=== PATIENT | male | born 1985 | race Caucasian/White ===

== ENCOUNTER 2016-11-09 20:16 | Emergency (ER) | payer SELFPAY ==
--- NOTE | 2016-11-09 21:47 | ED CLINICAL REPORT ---
Clinical Report - Physicians/Mid Levels [facility] [address] [place] [address] 11/09/2016 20:19 Patient: LUANNE FITZGERALD Time Seen: 20:43; initial patient contact, initial documentation, patient care assumed. Arrived- By private vehicle. Historian- patient. HISTORY OF PRESENT ILLNESS Chief Complaint: ABDOMINAL PAIN. At its maximum, severity described as severe. When seen in the E.D., severity described as severe. Modifying factors. Not worsened by anything. Not relieved by anything. It is described as "pain" and stabbing. No radiation. It is described as located in the periumbilical area. This started about 2 days ago and is still present. It was abrupt in onset and has been intermittent. No nausea, loss of appetite or vomiting. He has had diarrhea. This has occurred only once. No additional abdominal pain. (no pcp). Similar symptoms previously: None. Recent medical care: The patient was seen recently in a clinic. ( went to walk in clinic, given rx prilosec, no better). REVIEW OF SYSTEMS No constipation, black stools, hematemesis, difficulty with urination or pain with urination. No urinary frequency, bloody stools, fever, chest pain or difficulty breathing. All systems otherwise negative, except as recorded above. PAST HISTORY See nurses notes. PROBLEMS: Asthma. --20:28 Theresa Damian RRaine. ADDITIONAL SURGERIES: Oral surgery. --20:28 Theresa Damian RRaine. SOCIAL HISTORY Former smoker. Occasional alcohol use. No drug use. No recent travel. Is a local resident. FAMILY HISTORY Negative. ADDITIONAL NOTES The nursing notes have been reviewed with agreement regarding the chief complaint, HPI, ROS, PMH and patient medications and allergies. PHYSICAL EXAM Vital Signs: 11/09/2016 20:25 BP: 148/93. HR: 74. RR: 15. O2 saturation: 100%. Temp: 98.7 F. Pain level now: 7/10. Have been reviewed as normal and appear to be correct. Appearance: Alert. Oriented X3. No acute distress. Eyes: Pupils equal, round and reactive to light. Eyes normal inspection. Neck: Normal inspection. Neck supple. CVS: Normal heart rate and rhythm. Heart sounds normal. Pulses normal. Respiratory: No respiratory distress. Breath sounds normal. Chest nontender. Abdomen: Soft. Mild tenderness in the periumbilical area. No guarding, rebound tenderness or Beard's, obturator or psoas sign present. Bowel sounds normal. No organomegaly. No mass. Tenderness present. Back: Normal inspection. Skin: Skin warm and dry. Normal skin color. No rash. Normal skin turgor. Extremities: Extremities exhibit normal ROM. No lower extremity edema. Neuro: Oriented X 3. No motor deficit. No sensory deficit. LABS, X-RAYS, AND EKG Laboratory Tests: UA-Culture if indicated: (FIONA: 11/09/2016 20:31) ( [facility] 11/09/2016 21:29) Final results Test Result Flag Units (Reference) URINE COLOR YELLOW URINE APPEARANCE CLEAR URINE GLUCOSE NEGATIVE (NEGATIVE) URINE BILIRUBIN NEGATIVE (NEGATIVE) URINE KETONE NEGATIVE (NEGATIVE) URINE SPECIFIC GRAVITY 1.010 (1.010-1.030) URINE PH 7.0 (5.0-8.0) URINE PROTEIN NEGATIVE (NEGATIVE) URINE UROBILINOGEN 0.2 EU/dL (0.2-1.0) URINE NITRITE NEGATIVE (NEGATIVE) URINE BLOOD NEGATIVE (NEGATIVE) URINE LEUK ESTERASE NEGATIVE (NEGATIVE) URINE RBC NONE SEEN rbc/hpf (0-1) URINE WBC NONE SEEN wbc/hpf (0-1) URINE EPITHELIAL CELLS RARE EPI/hpf (0-5) URINE BACTERIA NONE SEEN (NONE SEEN) URINE COMMENT CULT NOT INDICATED URINE CULTURES ARE SET-UP BASED ON THE FOLLOWING CRITERIA:POSITIVE NITRITEPOSITIVE LEUKOCYTE ESTERASEGREATER THAN 10 WHITE BLOOD CELLSMODERATE (2+) OR GREATER BACTERIA CBC w Diff: (FIONA: 11/09/2016 20:31) ( [facility] 11/09/2016 21:14) Final results Test Result Flag Units (Reference) WHITE BLOOD COUNT 11.5 K/uL (4.5-11.5) RED BLOOD COUNT 5.07 M/uL (4.50-5.90) HEMOGLOBIN 15.1 gm/dL (13.5-17.5) HEMATOCRIT 44.7 % (41.0-53.0) MEAN CELL VOLUME 88 fL (80-100) MEAN CORPUSCULAR HGB 30 pg (26-34) MEAN CORPUSCULAR HGB CONC 34 g/dL (31-37) RED CELL DISTRIBUTION WIDTH 13.0 % (11.6-14.8) PLATELET COUNT 302 K/uL (150-400) NEUTROPHIL % 48.6 L % (50-75) LYMPH % 28.6 % (25-40) MONO % 4.1 % (3-14) EOSINOPHIL % 18.4 H % (0-4) BASOPHIL % 0.3 % (0-2) CMP: (FIONA: 11/09/2016 20:31) ( MsgRcvd 11/09/2016 21:30) Final results Test Result Flag Units (Reference) GLUCOSE 113 H mg/dL (70-110) BUN 13 mg/dL (7-18) CREATININE 1.2 mg/dL (0.6-1.3) Estimated GFR >60 mL/min Estimated GFR- >60 mL/min Note: Persistent reduction over 3 months in eGFR<60 mL/min/1.73 m2 defines CKD. Patients with eGFR values>=60 mL/min/1.73 m2 may also have CKD if evidence ofpersistent proteinuria. Additional information may be foundat www.kidney.org. SODIUM 140 mmol/L (136-145) POTASSIUM 3.4 L mmol/L (3.5-5.1) CHLORIDE 101 mmol/L (98-107) CARBON DIOXIDE 28 mmol/L (21-32) CALCIUM 8.9 mg/dL (8.5-10.1) TOTAL PROTEIN 8.0 g/dL (6.4-8.2) ALBUMIN 4.1 g/dL (3.3-5.0) BILIRUBIN, TOTAL 0.8 mg/dL (0.0-1.0) ALKALINE PHOSPHATASE 104 U/L (46-116) AST (SGOT) 17 U/L (15-37) ALT (SGPT) 23 U/L (12-78) LIPASE 179 U/L (73-393) AMYLASE 71 U/L (25-115) . PROGRESS AND PROCEDURES Course of Care: 2139. pt telling me he feels better after gi cocktail. Patient and family counseled in person regarding the patient's stable condition, test results and diagnosis. Differential Diagnosis: I considered gastritis, gastroenteritis, peptic ulcer disease, gastroesophageal reflux disease, acute appendicitis, diverticulitis, colon cancer, ulcerative colitis, Crohn's disease, biliary colic, cholecystitis, cholelithiasis, hepatitis, pancreatitis, common bile duct obstruction and viral syndrome as a possible cause of abdominal pain in this patient. This is a partial list of diagnoses considered. Above considerations are based on history, physical exam, reassessment and laboratory data. Differential diagnosis was discussed with patient. Disposition: Discharged home in good and improved condition (21:47). Condition: good and stable. CLINICAL IMPRESSION Acute periumbilical abdominal pain of undetermined cause. INSTRUCTIONS Warnings: GENERAL WARNINGS: Return or contact your physician immediately if your condition worsens or changes unexpectedly, if not improving as expected, or if other problems arise. SPECIFICALLY, return if you develop pain in the abdomen or pelvis, fever, the inability to keep fluids down, blood in vomitus, blood in diarrhea, fainting or lightheadedness. Prescription Medications: Carafate 1 gm tablets: take 1 orally four times daily (1 hour before meals and at bedtime). Dispense sixty (60). No refills. Substitution is permissible. Ultram 50 mg tablets: take 1-2 orally every 6 hours as needed for pain. Dispense twenty (20). No refills. Substitution is permissible. Follow-up: Follow up with your doctor in about two days even if well. Call for an appointment. Summary of care provided to patient. Understanding of the discharge instructions verbalized by patient. Follow-up with: Taz Kaufman MD, [facility], , [address] [facility], , [place] [address]; Ed Burdick MD, [facility], , [facility], [address] [place] [address]; Dominic Pedroza MD, [facility], , [facility], [address] [place] [address]; Mathew Henderson MD, [facility], , [facility], [address] [place] [address] [address] [place] [address]; Christiana Bishop MD, [facility], [address] [place] [address], [facility], [address] [place] [address] [place] [address]; [facility], [facility], , [address] [place] [address]; Rebecca Valdez PA-C, [facility], [address] [place] [address], [facility], [address] [place] [address], [address] [address]; [facility], [facility], [address] [place] [address], [address] [place] [address], [address], [place] [address] Follow up in about two days as needed. Call for an appointment. Summary of care provided to patient. (Electronically signed by Crys Freitas A.R.N.P. 11/09/2016 22:50)
--- NOTE | 2016-11-09 21:47 | ED NURSING NOTES ---
Clinical Report - Nurses [facility] [address] [place] [address] 11/09/2016 20:19 Patient: LUANNE FITZGERALD TRIAGE Triage time 20:Nov 09 2016. Acuity: LEVEL 3. Chief Complaint: ABDOMINAL PAIN and (pt with 2 days of abd pain " center in my stomach" describes as "throbbing" accomp with denies n/v, normal urine voiding, reports diarrhea since monday). Alert. No acute distress. SEPSIS SCREEN: Sepsis Screen. Negative (no infection suspected/documented). --20:29 Theresa Damian R.N. 20:25 11/09/16. BP: 148/93. HR: 74. RR: 15. O2 saturation: 100%. Temp: 98.7 F. Pain level now: 11/28. --20:29 Theresa Damian R.N. Weight: 65.7 kg stated. Height/Length: 70 inches Per Patient. BMI: 20.8. --20:26 Theresa Damian R.N. Medications PriLOSEC Oral. --20:28 Theresa Damian R.N. Allergies None. --20:28 Theresa Damian R.N. Medication/allergy information source: the patient. --20:29 Theresa Damian R.N. History Arrived by private vehicle. Historian: patient. Accompanied by family. This started yesterday. 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 PAST MEDICAL HX: Immunizations: up-to-date. SOCIAL HX: Former smoker, end date 2014. History of drug use: marijuana. No alcohol use. No recent travel. No infectious disease exposure. No known contact with a sick individual. ABUSE ASSESSMENT: No report of abuse. SELF HARM ASSESSMENT: A self harm assessment was performed. The patient answered "no" to the question "Do you have thoughts of harming or killing yourself?". FALL RISK ASSESSMENT: Fall risk assessment completed. No fall risk identified. NUTRITIONAL RISK ASSESSMENT: The nutritional risk assessment revealed no deficiencies. FUNCTIONAL ASSESSMENT: Functional assessment: no impairments noted. LEARNING NEEDS ASSESSMENT: The learning needs assessment revealed no barriers. SKIN INTEGRITY ASSESSMENT: Skin integrity risk assessment completed. No skin integrity risk identified. --20:29 Theresa Damian R.N. PROBLEMS: Asthma. --20:28 Theresa Damian R.N. ADDITIONAL SURGERIES: Oral surgery. --20:28 Theresa Damian R.N. Interventions ID band on patient. To treatment room. --20:29 Theresa Damian R.N. PHYSICAL ASSESSMENT Ambulatory to room. Patient gowned. GENERAL / NEURO / PSYCH: Alert. Oriented X 4. Appears in no acute distress. HEENT: Mucous membranes are pink. RESPIRATORY: Respirations not labored. CVS: Capillary refill less than 2 seconds. GI / : Abdomen soft and nontender. Bowel sounds within normal limits. SKIN: Skin is warm and dry. --20:31 Theresa Damian R.N. NURSING PROGRESS NOTES 20:31 11/09/2016 Site #1 started via IV in the left antecubital space with an 20g angiocath; one attempt. Blood drawn: rainbow set. Labeled in the presence of the patient and sent to the lab. Saline lock flushed with 10 mL saline. --20:31 Theresa Damian R.N. Monitoring of patient in place. Patient gowned. Head of bed elevated. Reassurance given. Patient identifiers checked. Call light placed in reach. Side rails up. Bed placed in lowest position. Brakes of bed on. Patient ready for evaluation- chart flagged. Patient waiting for evaluation. --20:31 Theresa Damian R.N. 21:22 11/09/2016 Toradol IVP 30 mg given. via site #1. Allergies verified and confirmed 5 rights. IV patency established. IV site checked: no pain, redness, or swelling. IV flushed thoroughly pre- and post-medication administration. IVP given by RN. --21:27 Theresa Damian R.N. 21:37 11/09/2016 GI COCKTAIL WHITE (Simethicone) PO 30 mL given. Allergies verified and confirmed 5 rights. --21:42 Theresa Damian R.N. DISPOSITION / DISCHARGE 22:00 11/09/2016 Site #1 removed upon discharge. Catheter intact. Manual pressure and bandage applied. --22:02 Xiomara Hartman R.N. Condition at departure: stable. No learning barriers present. Discharge instructions provided and reviewed with the patient. Reviewed medication(s) side effects, precautions, dosing and course information. Prescription(s) given to the patient. Patient verbalized understanding. Written instructions provided in [place] [employer]. The patient was discharged home and accompanied by family. He left the Emergency Department ambulatory and via private vehicle. Family member driving. --22:03 Xiomara Hartman R.N. 22:02 11/09/16. BP: 118/73. HR: 57. RR: 15. O2 saturation: 99% on room air. Temp: deferred. Mancini-Li pain scale: 4/10. --22:03 Xiomara Hartman R.N. Locked/Released at 11/09/2016 22:03 by Xiomara Hartman R.N.
--- NOTE | 2016-11-09 21:47 | ED ORDER SUMMARY ---
..... Patient: LUANNE FITZGERALD OrderSheet [facility] VisitID: [id number] [address] [place] [address] 30y, M Registration Date/Time: 11/09/2016 ORDER SHEET Weight: 65.7 kg (stated) Allergies: None GENERAL ORDERS: CBC w Diff Urgent (20:51 11/09/2016 HBivens A.R.N.P.) (Ack 20:56 AMcQuoid ER Tech1) (21:24 KPage-Kuchan R.N.) CMP Urgent (20:51 11/09/2016 HBivens A.R.N.P.) (Ack 20:56 AMcQuoid ER Tech1) (21:24 KPage-Kuchan R.N.) UA-Culture if indicated Urgent (20:51 11/09/2016 HBivens A.R.N.P.) (Ack 20:56 AMcQuoid ER Tech1) (21:24 KPage-Kuchan R.N.) Amylase Urgent (20:51 11/09/2016 HBivens A.R.N.P.) (Ack 20:56 AMcQuoid ER Tech1) (21:24 KPage-Kuchan R.N.) Lipase Urgent (20:51 11/09/2016 HBivens A.R.N.P.) (Ack 20:56 AMcQuoid ER Tech1) (21:24 KPage-Kuchan R.N.) MEDICATION ORDERS: GI Cocktail WHITE PO 30 mL with Lidocaine Viscous Mouth/Throat 15 mL, Maalox Plus Oral 15 mL (21:32 11/09/2016 HBivens A.R.N.P.) (Ack 21:32 KPage-Kuchan R.N.) (21:42 KPage-Kuchan R.N.) IV FLUIDS: Toradol IV 30 mg (NOW) (20:51 11/09/2016 HBivens A.R.N.P.) (Ack 21:00 KPage-Kuchan R.N.) (21:27 KPage-Kuchan R.N.) IV Saline Lock (20:51 11/09/2016 HBivens A.R.N.PAyesha) (20:55 Toni Lemus) ORDER SHEET NOTES: [Electronically signed by Xiomara Hartman R.N. (22:03 11/09/2016)] [Electronically signed by Crys FreitasRAyeshaN.PAyesha (22:50 11/09/2016)] [Electronically locked/signed by Xiomara Hartman R.N. (22:03 11/09/2016)]
--- NOTE | 2016-11-09 21:47 | ED NURSING NOTES ---
Clinical Report - Nurses [facility] [address] [place] [address] 11/09/2016 20:19 Patient: LUANNE FITZGERALD TRIAGE Triage time 20:Nov 09 2016. Acuity: LEVEL 3. Chief Complaint: ABDOMINAL PAIN and (pt with 2 days of abd pain " center in my stomach" describes as "throbbing" accomp with denies n/v, normal urine voiding, reports diarrhea since monday). Alert. No acute distress. SEPSIS SCREEN: Sepsis Screen. Negative (no infection suspected/documented). --20:29 Theresa Damian R.N. 20:25 11/09/16. BP: 148/93. HR: 74. RR: 15. O2 saturation: 100%. Temp: 98.7 F. Pain level now: 11/28. --20:29 Theresa Damian R.N. Weight: 65.7 kg stated. Height/Length: 70 inches Per Patient. BMI: 20.8. --20:26 Theresa Damian R.N. Medications PriLOSEC Oral. --20:28 Theresa Damian R.N. Allergies None. --20:28 Theresa Damian R.N. Medication/allergy information source: the patient. --20:29 Theresa Damian R.N. History Arrived by private vehicle. Historian: patient. Accompanied by family. This started yesterday. 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 PAST MEDICAL HX: Immunizations: up-to-date. SOCIAL HX: Former smoker, end date 2014. History of drug use: marijuana. No alcohol use. No recent travel. No infectious disease exposure. No known contact with a sick individual. ABUSE ASSESSMENT: No report of abuse. SELF HARM ASSESSMENT: A self harm assessment was performed. The patient answered "no" to the question "Do you have thoughts of harming or killing yourself?". FALL RISK ASSESSMENT: Fall risk assessment completed. No fall risk identified. NUTRITIONAL RISK ASSESSMENT: The nutritional risk assessment revealed no deficiencies. FUNCTIONAL ASSESSMENT: Functional assessment: no impairments noted. LEARNING NEEDS ASSESSMENT: The learning needs assessment revealed no barriers. SKIN INTEGRITY ASSESSMENT: Skin integrity risk assessment completed. No skin integrity risk identified. --20:29 Theresa Damian R.N. PROBLEMS: Asthma. --20:28 Theresa Damian R.N. ADDITIONAL SURGERIES: Oral surgery. --20:28 Theresa Damian R.N. Interventions ID band on patient. To treatment room. --20:29 Theresa Damian R.N. PHYSICAL ASSESSMENT Ambulatory to room. Patient gowned. GENERAL / NEURO / PSYCH: Alert. Oriented X 4. Appears in no acute distress. HEENT: Mucous membranes are pink. RESPIRATORY: Respirations not labored. CVS: Capillary refill less than 2 seconds. GI / : Abdomen soft and nontender. Bowel sounds within normal limits. SKIN: Skin is warm and dry. --20:31 Theresa Damian R.N. NURSING PROGRESS NOTES 20:31 11/09/2016 Site #1 started via IV in the left antecubital space with an 20g angiocath; one attempt. Blood drawn: rainbow set. Labeled in the presence of the patient and sent to the lab. Saline lock flushed with 10 mL saline. --20:31 Theresa Damian R.N. Monitoring of patient in place. Patient gowned. Head of bed elevated. Reassurance given. Patient identifiers checked. Call light placed in reach. Side rails up. Bed placed in lowest position. Brakes of bed on. Patient ready for evaluation- chart flagged. Patient waiting for evaluation. --20:31 Theresa Damian R.N. 21:22 11/09/2016 Toradol IVP 30 mg given. via site #1. Allergies verified and confirmed 5 rights. IV patency established. IV site checked: no pain, redness, or swelling. IV flushed thoroughly pre- and post-medication administration. IVP given by RN. --21:27 Theresa Damian R.N. 21:37 11/09/2016 GI COCKTAIL WHITE (Simethicone) PO 30 mL given. Allergies verified and confirmed 5 rights. --21:42 Theresa Damian R.N. DISPOSITION / DISCHARGE 22:00 11/09/2016 Site #1 removed upon discharge. Catheter intact. Manual pressure and bandage applied. --22:02 Xiomara Hartman R.N. Condition at departure: stable. No learning barriers present. Discharge instructions provided and reviewed with the patient. Reviewed medication(s) side effects, precautions, dosing and course information. Prescription(s) given to the patient. Patient verbalized understanding. Written instructions provided in Thai. The patient was discharged home and accompanied by family. He left the Emergency Department ambulatory and via private vehicle. Family member driving. --22:03 Xiomara Hartman R.N. 22:02 11/09/16. BP: 118/73. HR: 57. RR: 15. O2 saturation: 99% on room air. Temp: deferred. Mancini-Li pain scale: 4/10. --22:03 Xiomara Hartman R.N. Locked/Released at 11/09/2016 22:03 by Xiomara Hartman R.N.
--- NOTE | 2016-11-09 21:47 | ED CLINICAL REPORT ---
Clinical Report - Physicians/Mid Levels [facility] [address] [place] [address] 11/09/2016 20:19 Patient: LUANNE FITZGERALD Time Seen: 20:43; initial patient contact, initial documentation, patient care assumed. Arrived- By private vehicle. Historian- patient. HISTORY OF PRESENT ILLNESS Chief Complaint: ABDOMINAL PAIN. At its maximum, severity described as severe. When seen in the E.D., severity described as severe. Modifying factors. Not worsened by anything. Not relieved by anything. It is described as "pain" and stabbing. No radiation. It is described as located in the periumbilical area. This started about 2 days ago and is still present. It was abrupt in onset and has been intermittent. No nausea, loss of appetite or vomiting. He has had diarrhea. This has occurred only once. No additional abdominal pain. (no pcp). Similar symptoms previously: None. Recent medical care: The patient was seen recently in a clinic. ( went to walk in clinic, given rx prilosec, no better). REVIEW OF SYSTEMS No constipation, black stools, hematemesis, difficulty with urination or pain with urination. No urinary frequency, bloody stools, fever, chest pain or difficulty breathing. All systems otherwise negative, except as recorded above. PAST HISTORY See nurses notes. PROBLEMS: Asthma. --20:28 Theresa Damian RRaine. ADDITIONAL SURGERIES: Oral surgery. --20:28 Theresa Damian RRaine. SOCIAL HISTORY Former smoker. Occasional alcohol use. No drug use. No recent travel. Is a local resident. FAMILY HISTORY Negative. ADDITIONAL NOTES The nursing notes have been reviewed with agreement regarding the chief complaint, HPI, ROS, PMH and patient medications and allergies. PHYSICAL EXAM Vital Signs: 11/09/2016 20:25 BP: 148/93. HR: 74. RR: 15. O2 saturation: 100%. Temp: 98.7 F. Pain level now: 7/10. Have been reviewed as normal and appear to be correct. Appearance: Alert. Oriented X3. No acute distress. Eyes: Pupils equal, round and reactive to light. Eyes normal inspection. Neck: Normal inspection. Neck supple. CVS: Normal heart rate and rhythm. Heart sounds normal. Pulses normal. Respiratory: No respiratory distress. Breath sounds normal. Chest nontender. Abdomen: Soft. Mild tenderness in the periumbilical area. No guarding, rebound tenderness or Beard's, obturator or psoas sign present. Bowel sounds normal. No organomegaly. No mass. Tenderness present. Back: Normal inspection. Skin: Skin warm and dry. Normal skin color. No rash. Normal skin turgor. Extremities: Extremities exhibit normal ROM. No lower extremity edema. Neuro: Oriented X 3. No motor deficit. No sensory deficit. LABS, X-RAYS, AND EKG Laboratory Tests: UA-Culture if indicated: (FIONA: 11/09/2016 20:31) ( [facility] 11/09/2016 21:29) Final results Test Result Flag Units (Reference) URINE COLOR YELLOW URINE APPEARANCE CLEAR URINE GLUCOSE NEGATIVE (NEGATIVE) URINE BILIRUBIN NEGATIVE (NEGATIVE) URINE KETONE NEGATIVE (NEGATIVE) URINE SPECIFIC GRAVITY 1.010 (1.010-1.030) URINE PH 7.0 (5.0-8.0) URINE PROTEIN NEGATIVE (NEGATIVE) URINE UROBILINOGEN 0.2 EU/dL (0.2-1.0) URINE NITRITE NEGATIVE (NEGATIVE) URINE BLOOD NEGATIVE (NEGATIVE) URINE LEUK ESTERASE NEGATIVE (NEGATIVE) URINE RBC NONE SEEN rbc/hpf (0-1) URINE WBC NONE SEEN wbc/hpf (0-1) URINE EPITHELIAL CELLS RARE EPI/hpf (0-5) URINE BACTERIA NONE SEEN (NONE SEEN) URINE COMMENT CULT NOT INDICATED URINE CULTURES ARE SET-UP BASED ON THE FOLLOWING CRITERIA:POSITIVE NITRITEPOSITIVE LEUKOCYTE ESTERASEGREATER THAN 10 WHITE BLOOD CELLSMODERATE (2+) OR GREATER BACTERIA CBC w Diff: (FIONA: 11/09/2016 20:31) ( [facility] 11/09/2016 21:14) Final results Test Result Flag Units (Reference) WHITE BLOOD COUNT 11.5 K/uL (4.5-11.5) RED BLOOD COUNT 5.07 M/uL (4.50-5.90) HEMOGLOBIN 15.1 gm/dL (13.5-17.5) HEMATOCRIT 44.7 % (41.0-53.0) MEAN CELL VOLUME 88 fL (80-100) MEAN CORPUSCULAR HGB 30 pg (26-34) MEAN CORPUSCULAR HGB CONC 34 g/dL (31-37) RED CELL DISTRIBUTION WIDTH 13.0 % (11.6-14.8) PLATELET COUNT 302 K/uL (150-400) NEUTROPHIL % 48.6 L % (50-75) LYMPH % 28.6 % (25-40) MONO % 4.1 % (3-14) EOSINOPHIL % 18.4 H % (0-4) BASOPHIL % 0.3 % (0-2) CMP: (FIONA: 11/09/2016 20:31) ( MsgRcvd 11/09/2016 21:30) Final results Test Result Flag Units (Reference) GLUCOSE 113 H mg/dL (70-110) BUN 13 mg/dL (7-18) CREATININE 1.2 mg/dL (0.6-1.3) Estimated GFR >60 mL/min Estimated GFR- >60 mL/min Note: Persistent reduction over 3 months in eGFR<60 mL/min/1.73 m2 defines CKD. Patients with eGFR values>=60 mL/min/1.73 m2 may also have CKD if evidence ofpersistent proteinuria. Additional information may be foundat [email or web address]. SODIUM 140 mmol/L (136-145) POTASSIUM 3.4 L mmol/L (3.5-5.1) CHLORIDE 101 mmol/L (98-107) CARBON DIOXIDE 28 mmol/L (21-32) CALCIUM 8.9 mg/dL (8.5-10.1) TOTAL PROTEIN 8.0 g/dL (6.4-8.2) ALBUMIN 4.1 g/dL (3.3-5.0) BILIRUBIN, TOTAL 0.8 mg/dL (0.0-1.0) ALKALINE PHOSPHATASE 104 U/L (46-116) AST (SGOT) 17 U/L (15-37) ALT (SGPT) 23 U/L (12-78) LIPASE 179 U/L (73-393) AMYLASE 71 U/L (25-115) . PROGRESS AND PROCEDURES Course of Care: 2139. pt telling me he feels better after gi cocktail. Patient and family counseled in person regarding the patient's stable condition, test results and diagnosis. Differential Diagnosis: I considered gastritis, gastroenteritis, peptic ulcer disease, gastroesophageal reflux disease, acute appendicitis, diverticulitis, colon cancer, ulcerative colitis, Crohn's disease, biliary colic, cholecystitis, cholelithiasis, hepatitis, pancreatitis, common bile duct obstruction and viral syndrome as a possible cause of abdominal pain in this patient. This is a partial list of diagnoses considered. Above considerations are based on history, physical exam, reassessment and laboratory data. Differential diagnosis was discussed with patient. Disposition: Discharged home in good and improved condition (21:47). Condition: good and stable. CLINICAL IMPRESSION Acute periumbilical abdominal pain of undetermined cause. INSTRUCTIONS Warnings: GENERAL WARNINGS: Return or contact your physician immediately if your condition worsens or changes unexpectedly, if not improving as expected, or if other problems arise. SPECIFICALLY, return if you develop pain in the abdomen or pelvis, fever, the inability to keep fluids down, blood in vomitus, blood in diarrhea, fainting or lightheadedness. Prescription Medications: Carafate 1 gm tablets: take 1 orally four times daily (1 hour before meals and at bedtime). Dispense sixty (60). No refills. Substitution is permissible. Ultram 50 mg tablets: take 1-2 orally every 6 hours as needed for pain. Dispense twenty (20). No refills. Substitution is permissible. Follow-up: Follow up with your doctor in about two days even if well. Call for an appointment. Summary of care provided to patient. Understanding of the discharge instructions verbalized by patient. Follow-up with: Taz Kaufman MD, [facility], , [address] [facility], , [place] [address]; Ed Burdick MD, [facility], , [facility], [address] [place] [address]; Dominic Pedroza MD, [facility], , [facility], [address] [place] [address]; Mathew Henderson MD, [facility], , [facility], [address] [place] [address] [place] [address]; Christiana Bishop MD, [facility], [address] [place] [address], [facility], [address] [place] [address] [place] [address]; [facility], [facility], , [address] [place] [address]; Rebecca Valdez PA-C, [facility], [address] [place] [address], [facility], [address] [place] [address], [address] [address]; [facility], [facility], [address] [place] [address], [address] [place] [address], [address], [place] [address] Follow up in about two days as needed. Call for an appointment. Summary of care provided to patient. (Electronically signed by Crys Freitas A.R.N.P. 11/09/2016 22:50)
--- NOTE | 2016-11-09 21:47 | ED ORDER SUMMARY ---
..... Patient: LUANNE FITZGERALD OrderSheet [facility] VisitID: [id number] [address] [place] [address] 30y, M Registration Date/Time: 11/09/2016 ORDER SHEET Weight: 65.7 kg (stated) Allergies: None GENERAL ORDERS: CBC w Diff Urgent (20:51 11/09/2016 HBivens A.R.N.P.) (Ack 20:56 AMcQuoid ER Tech1) (21:24 KPage-Kuchan R.N.) CMP Urgent (20:51 11/09/2016 HBivens A.R.N.P.) (Ack 20:56 AMcQuoid ER Tech1) (21:24 KPage-Kuchan R.N.) UA-Culture if indicated Urgent (20:51 11/09/2016 HBivens A.R.N.P.) (Ack 20:56 AMcQuoid ER Tech1) (21:24 KPage-Kuchan R.N.) Amylase Urgent (20:51 11/09/2016 HBivens A.R.N.P.) (Ack 20:56 AMcQuoid ER Tech1) (21:24 KPage-Kuchan R.N.) Lipase Urgent (20:51 11/09/2016 HBivens A.R.N.P.) (Ack 20:56 AMcQuoid ER Tech1) (21:24 KPage-Kuchan R.N.) MEDICATION ORDERS: GI Cocktail WHITE PO 30 mL with Lidocaine Viscous Mouth/Throat 15 mL, Maalox Plus Oral 15 mL (21:32 11/09/2016 HBivens A.R.N.P.) (Ack 21:32 KPage-Kuchan R.N.) (21:42 KPage-Kuchan R.N.) IV FLUIDS: Toradol IV 30 mg (NOW) (20:51 11/09/2016 HBivens A.R.N.P.) (Ack 21:00 KPage-Kuchan R.N.) (21:27 KPage-Kuchan R.N.) IV Saline Lock (20:51 11/09/2016 HBivens A.R.N.PAyesha) (20:55 Toni Lemus) ORDER SHEET NOTES: [Electronically signed by Xiomara Hartman R.N. (22:03 11/09/2016)] [Electronically signed by Crys FreitasRAyeshaN.PAyesha (22:50 11/09/2016)] [Electronically locked/signed by Xiomara Hartman R.N. (22:03 11/09/2016)]
--- NOTE | 2016-11-09 22:51 | ED MAR SUMMARY ---
..... Medication Administration Record [facility] [address] [place] [address] Patient: LUANNE FITZGERALD Visit ID: [id number] 30y, M Weight: 65.7 kg Height/Length: 70 in BMI: 20.8 ALLERGIES: None Given 21:22 11/09/2016 Theresa Damian, RAyeshaNAyesha Medication Administered: TORADOL [IVP], Dose: 30 mg IVP, Site: #1 left . Medication Ordered: Toradol IV 30 mg (NOW). Given 21:37 11/09/2016 Theresa Damian, R.N. Medication Administered: GI COCKTAIL WHITE [PO] (SIMETHICONE), Dose: 30 mL PO. Medication Ordered: GI Cocktail WHITE PO 30 mL with Lidocaine Viscous Mouth/Throat 15 mL, Maalox Plus Oral 15 mL.
--- NOTE | 2016-11-09 22:51 | ED MAR SUMMARY ---
..... Medication Administration Record [facility] [address] [place] [address] Patient: LUANNE FITZGERALD Visit ID: [id number] 30y, M Weight: 65.7 kg Height/Length: 70 in BMI: 20.8 ALLERGIES: None Given 21:22 11/09/2016 Theresa Damian, RAyeshaNAyesha Medication Administered: TORADOL [IVP], Dose: 30 mg IVP, Site: #1 left . Medication Ordered: Toradol IV 30 mg (NOW). Given 21:37 11/09/2016 Theresa Damian, R.N. Medication Administered: GI COCKTAIL WHITE [PO] (SIMETHICONE), Dose: 30 mL PO. Medication Ordered: GI Cocktail WHITE PO 30 mL with Lidocaine Viscous Mouth/Throat 15 mL, Maalox Plus Oral 15 mL.
--- NOTE | 2016-11-09 22:51 | ED DISCHARGE INSTRUCTIONS ---
Patient: LUANNE FITZGERALD General Instructions [facility] VisitID: [id number] [place] [address] 30y, M Registration Date/Time: 11/09/2016 Acute periumbilical abdominal pain of undetermined cause. INSTRUCTIONS Warnings: GENERAL WARNINGS: Return or contact your physician immediately if your condition worsens or changes unexpectedly, if not improving as expected, or if other problems arise. SPECIFICALLY, return if you develop pain in the abdomen or pelvis, fever, the inability to keep fluids down, blood in vomitus, blood in diarrhea, fainting or lightheadedness. Prescription Medications: Carafate 1 gm tablets: take 1 orally four times daily (1 hour before meals and at bedtime). Dispense sixty (60). No refills. Substitution is permissible. Ultram 50 mg tablets: take 1-2 orally every 6 hours as needed for pain. Dispense twenty (20). No refills. Substitution is permissible. Follow-up: Follow up with your doctor in about two days even if well. Call for an appointment. Summary of care provided to patient. Understanding of the discharge instructions verbalized by patient. Follow-up with: Taz Kaufman MD, [facility], , [address] [place] [address]; Ed Burdick MD, [facility], , [facility], [address] [place] [address]; Dominic Pedroza MD, [facility], , [facility], [address] [place] [address]; Mathew Henderson MD, [facility], , [facility], [address] [place] [address]; Christiana Bishop MD, [facility], , [facility], [address] [place] [address]; [facility], [facility], , [address] [place] [address]; Rebecca Valdez PA-C, [facility], , [facility], [address] [place] [address], [address], [place] [address]; [facility], , [address] [place] [address], [address], [place] [address] Follow up in about two days as needed. Call for an appointment. Summary of care provided to patient. ADDITIONAL INFORMATION Abdominal Pain,Uncertain Cause [Male] Based on your visit today, the exact cause of your abdominalpain is not clear. Your exam and tests do not indicate a dangerous cause at this time. However, the signs of a serious problem may take more time to appear. Although your evaluation was reassuring today, sometimes early in the course of many conditions, exam and lab tests can appear normal. Therefore, it is important for you to watch for any new symptoms or worsening of your condition. Causes It may not be obvious what caused your symptoms. Pay attention to things that do seem to make your symptoms worse or better and discuss this with your doctor when you follow up. Diagnosis The evaluation of abdominal pain in the emergency department may onlyrequire an exam by the doctor or it may include blood, urine or imaging studies, depending on many factors. Sometimes exams and tests can identify a cause but in many cases, a clear cause is not found. Further testing at follow up visits may help to suggest a clear diagnosis. Home Care Rest as much as possible until your next exam. Try to avoid any medications (unless otherwise directed by your doctor), foods, activities, or other factors that you may have contributed to your symptoms. Try to eat foods that you know that you have tolerated well in the past. Certain diets may be recommended for some conditions that cause abdominal pain. However, since the cause of your symptoms may not be clear, discuss your diet more with your primary care provider or specialist for further recommendations. Eating several small meals per day as opposed to 2 or 3 larger meals may help. Monitor closely for anything that may make your symptoms worse or better. Pay close attention to symptoms below that may indicate worsening of your condition. Follow Up and Precautions See your doctoras instructed or sooneror if your symptoms are not improving.In some cases, you may need more testing. When to Seek Medical Attention Contact your doctor or see medical attention ifany of the following occur: Pain is becoming worse You are unable to take your medications due to excessive vomiting Swelling of the abdomen Fever of 100.4F (38C) or higher, or as directed by your health care provider Blood in vomit or bowel movements (dark red or black color) Jaundice (yellow color of eyes and skin) New onset of weakness, dizziness or fainting New onset of chest, arm, back, neck or jaw pain Abdominal Pain, Possible Appendicitis, Repeat Exam, Male Based on your visit today, the exact cause of your abdominal (stomach) pain is not certain. However, you do have some of the early signs of appendicitis. Early in an appendix infection the symptoms can be similar to a simple "stomach ache" or "stomach flu". Therefore, the diagnosis can be hard to make.Since an appendix infection is a serious condition, it is important to know if this is the cause of your symptoms. WAITING for more time to pass and repeating the exam is the best way to find out whether you have appendicitis. Within the next 12-24 hours the cause of your stomach pain should become clear. It is important for you to watch for any new symptoms or worsening of your condition.(See below). Home Care: Rest until your next exam. No strenuous activities. Eat a diet low in fiber (called a low-residue diet). Foods allowed include refined breads, white rice, fruit and vegetable juices without pulp, tender meats. These foods will pass more easily through the intestine. Avoid whole-grain foods, whole fruits and vegetables, meats, seeds and nuts, fried or fatty foods, dairy, alcohol and spicy foods until your symptoms go away. In some cases, you may be asked not to eat or drink anything until you are re-examined. Return for another exam exactly as directed. Follow Up with your doctor or this facility as directed. [NOTE: If you had an X-ray, CT scan, ultrasound, or EKG (cardiogram), it will be reviewed by a specialist. You will be notified of any new findings that may affect your care.] Return Promptly before your next appointment or contact your doctor if any of the following occur: Pain gets worse or moves to the right lower abdomen New or worsening vomiting or diarrhea Swelling of the abdomen Unable to pass stool for more than three days New fever over 100.4 F (38.0 C), or rising fever Blood in vomit or bowel movements (dark red or black color) Weakness, dizziness or fainting Sucralfate Oral tablet What is this medicine? SUCRALFATE (JEANNIE carey fate) helps to treat ulcers of the intestine. How should I use this medicine? Take this medicine by mouth with a glass of water. Follow the directions on the prescription label. This medicine works best if you take it on an empty stomach, 1 hour before meals. Take your doses at regular intervals. Do not take your medicine more often than directed. Do not stop taking except on your doctor's advice. Talk to your lead infrastructure architect regarding the use of this medicine in children. Special care may be needed. What side effects may I notice from receiving this medicine? Side effects that you should report to your doctor or health resident care provider as soon as possible: allergic reactions like skin rash, itching or hives, swelling of the face, lips, or tongue difficulty breathing Side effects that usually do not require medical attention (report to your doctor or health resident care provider if they continue or are bothersome): back pain constipation drowsy, dizzy dry mouth headache stomach upset, gas trouble sleeping What may interact with this medicine? antacid cimetidine digoxin ketoconazole phenytoin quinidine ranitidine some antibiotics like ciprofloxacin, norfloxacin, and ofloxacin theophylline thyroid hormones warfarin What if I miss a dose? If you miss a dose, take it as soon as you can. If it is almost time for your next dose, take only that dose. Do not take double or extra doses. Where should I keep my medicine? Keep out of the reach of children. Store at room temperature between 15 and 30 degrees C (59 and 86 degrees F). Keep container tightly closed. Throw away any unused medicine after the expiration date. What should I tell my health care provider before I take this medicine? They need to know if you have any of these conditions: kidney disease an unusual or allergic reaction to sucralfate, other medicines, foods, dyes, or preservatives or trying to get breast-feeding What should I watch for while using this medicine? Visit your doctor or health resident care provider for regular check ups. Let your doctor know if your symptoms do not improve or if you feel worse. Antacids should not be taken within one half hour before or after this medicine. Tramadol Hydrochloride Oral tablet What is this medicine? TRAMADOL (TRA ma dole) is a pain reliever. It is used to treat moderate to severe pain in adults. How should I use this medicine? Take this medicine by mouth with a full glass of water. Follow the directions on the prescription label. If the medicine upsets your stomach, take it with food or milk. Do not take more medicine than you are told to take. Talk to your lead infrastructure architect regarding the use of this medicine in children. Special care may be needed. What side effects may I notice from receiving this medicine? Side effects that you should report to your doctor or health resident care provider as soon as possible: allergic reactions like skin rash, itching or hives, swelling of the face, lips, or tongue breathing difficulties, wheezing confusion itching light headedness or fainting spells redness, blistering, peeling or loosening of the skin, including inside the mouth seizures Side effects that usually do not require medical attention (report to your doctor or health resident care provider if they continue or are bothersome): constipation dizziness drowsiness headache nausea, vomiting What may interact with this medicine? Do not take this medicine with any of the following medications: MAOIs like Carbex, Eldepryl, Marplan, Nardil, and Parnate This medicine may also interact with the following medications: alcohol or medicines that contain alcohol antihistamines benzodiazepines bupropion carbamazepine or oxcarbazepine clozapine cyclobenzaprine digoxin furazolidone linezolid medicines for depression, anxiety, or psychotic disturbances medicines for migraine headache like almotriptan, eletriptan, frovatriptan, naratriptan, rizatriptan, sumatriptan, zolmitriptan medicines for pain like pentazocine, buprenorphine, butorphanol, meperidine, nalbuphine, and propoxyphene medicines for sleep muscle relaxants naltrexone phenobarbital phenothiazines like perphenazine, thioridazine, chlorpromazine, mesoridazine, fluphenazine, prochlorperazine, promazine, and trifluoperazine procarbazine warfarin What if I miss a dose? If you miss a dose, take it as soon as you can. If it is almost time for your next dose, take only that dose. Do not take double or extra doses. Where should I keep my medicine? Keep out of the reach of children. Store at room temperature between 15 and 30 degrees C (59 and 86 degrees F). Keep container tightly closed. Throw away any unused medicine after the expiration date. What should I tell my health care provider before I take this medicine? They need to know if you have any of these conditions: brain tumor depression drug abuse or addiction head injury if you frequently drink alcohol containing drinks kidney disease or trouble passing urine liver disease lung disease, asthma, or breathing problems seizures or epilepsy suicidal thoughts, plans, or attempt; a previous suicide attempt by you or a family member an unusual or allergic reaction to tramadol, codeine, other medicines, foods, dyes, or preservatives or trying to get breast-feeding What should I watch for while using this medicine? Tell your doctor or health resident care provider if your pain does not go away, if it gets worse, or if you have new or a different type of pain. You may develop tolerance to the medicine. Tolerance means that you will need a higher dose of the medicine for pain relief. Tolerance is normal and is expected if you take this medicine for a long time. Do not suddenly stop taking your medicine because you may develop a severe reaction. Your body becomes used to the medicine. This does NOT mean you are addicted. Addiction is a behavior related to getting and using a drug for a non-medical reason. If you have pain, you have a medical reason to take pain medicine. Your doctor will tell you how much medicine to take. If your doctor wants you to stop the medicine, the dose will be slowly lowered over time to avoid any side effects. You may get drowsy or dizzy. Do not drive, use machinery, or do anything that needs mental alertness until you know how this medicine affects you. Do not stand or sit up quickly, especially if you are an older patient. This reduces the risk of dizzy or fainting spells. Alcohol can increase or decrease the effects of this medicine. Avoid alcoholic drinks. You may have constipation. Try to have a bowel movement at least every 2 to 3 days. If you do not have a bowel movement for 3 days, call your doctor or health resident care provider. Your mouth may get dry. Chewing sugarless gum or sucking hard candy, and drinking plenty of water may help. Contact your doctor if the problem does not go away or is severe. You have been given the following additional information: Abdominal Pain, Unknown Cause, (Male) Abdominal Pain, Possible Appendicitis [Male] Sucralfate Oral tablet Tramadol Hydrochloride Oral tablet (Electronically signed by Crys Freitas A.R.N.P. 11/09/2016 22:50)
--- NOTE | 2016-11-09 22:51 | ED MED RECONCILIATION SUMMARY ---
Patient: LUANNE FITZGERALD Medication Reconciliation Report [facility] VisitID: [id number] [address] [place] [address] 30y, M Registration Date/Time: 11/09/2016 Weight: 65.7 kg Height/Length: 70 in. BMI: 20.8 ALLERGIES: None The patient's Home Medications are listed below: THE FOLLOWING MEDICATIONS NEED TO BE RECONCILED: PriLOSEC Oral The source(s) of the original Home Medication information: patient The following Medications were given to the patient in the Emergency Department: Toradol [IVP] IVP 30 mg, administered: 11/09/2016 9:22:00 PM GI COCKTAIL WHITE [PO] PO 30 mL, administered: 11/09/2016 9:37:00 PM The following Medications were prescribed to the patient: Carafate 1 gm tablets: take 1 orally four times daily (1 hour before meals and at bedtime). Dispense sixty (60). No refills. Substitution is permissible. -- Crys Freitas A.R.NAyeshaP. Ultram 50 mg tablets: take 1-2 orally every 6 hours as needed for pain. Dispense twenty (20). No refills. Substitution is permissible. -- Crys Freitas A.R.N.P.
--- NOTE | 2016-11-09 22:51 | ED DISCHARGE INSTRUCTIONS ---
Patient: LUANNE FITZGERALD General Instructions [facility] VisitID: [id number] [place] [address] 30y, M Registration Date/Time: 11/09/2016 Acute periumbilical abdominal pain of undetermined cause. INSTRUCTIONS Warnings: GENERAL WARNINGS: Return or contact your physician immediately if your condition worsens or changes unexpectedly, if not improving as expected, or if other problems arise. SPECIFICALLY, return if you develop pain in the abdomen or pelvis, fever, the inability to keep fluids down, blood in vomitus, blood in diarrhea, fainting or lightheadedness. Prescription Medications: Carafate 1 gm tablets: take 1 orally four times daily (1 hour before meals and at bedtime). Dispense sixty (60). No refills. Substitution is permissible. Ultram 50 mg tablets: take 1-2 orally every 6 hours as needed for pain. Dispense twenty (20). No refills. Substitution is permissible. Follow-up: Follow up with your doctor in about two days even if well. Call for an appointment. Summary of care provided to patient. Understanding of the discharge instructions verbalized by patient. Follow-up with: Taz Kaufman MD, [facility], , [address] [place] [address]; Ed Burdick MD, [facility], , [facility], [address] [place] [address]; Dominic Pedroza MD, [facility], , [facility], [address] [place] [address]; Mathew Henderson MD, [facility], , [facility], [address] [place] [address]; Christiana Bishop MD, [facility], , [facility], [address] [place] [address]; [facility], [facility], , [address] [place] [address]; Rebecca Valdez PA-C, [facility], , [facility], [address] [place] [address], [address], [place] [address]; [facility], , [address] [place] [address], [address], [place] [address] Follow up in about two days as needed. Call for an appointment. Summary of care provided to patient. ADDITIONAL INFORMATION Abdominal Pain,Uncertain Cause [Male] Based on your visit today, the exact cause of your abdominalpain is not clear. Your exam and tests do not indicate a dangerous cause at this time. However, the signs of a serious problem may take more time to appear. Although your evaluation was reassuring today, sometimes early in the course of many conditions, exam and lab tests can appear normal. Therefore, it is important for you to watch for any new symptoms or worsening of your condition. Causes It may not be obvious what caused your symptoms. Pay attention to things that do seem to make your symptoms worse or better and discuss this with your doctor when you follow up. Diagnosis The evaluation of abdominal pain in the emergency department may onlyrequire an exam by the doctor or it may include blood, urine or imaging studies, depending on many factors. Sometimes exams and tests can identify a cause but in many cases, a clear cause is not found. Further testing at follow up visits may help to suggest a clear diagnosis. Home Care Rest as much as possible until your next exam. Try to avoid any medications (unless otherwise directed by your doctor), foods, activities, or other factors that you may have contributed to your symptoms. Try to eat foods that you know that you have tolerated well in the past. Certain diets may be recommended for some conditions that cause abdominal pain. However, since the cause of your symptoms may not be clear, discuss your diet more with your primary care provider or specialist for further recommendations. Eating several small meals per day as opposed to 2 or 3 larger meals may help. Monitor closely for anything that may make your symptoms worse or better. Pay close attention to symptoms below that may indicate worsening of your condition. Follow Up and Precautions See your doctoras instructed or sooneror if your symptoms are not improving.In some cases, you may need more testing. When to Seek Medical Attention Contact your doctor or see medical attention ifany of the following occur: Pain is becoming worse You are unable to take your medications due to excessive vomiting Swelling of the abdomen Fever of 100.4F (38C) or higher, or as directed by your health care provider Blood in vomit or bowel movements (dark red or black color) Jaundice (yellow color of eyes and skin) New onset of weakness, dizziness or fainting New onset of chest, arm, back, neck or jaw pain Abdominal Pain, Possible Appendicitis, Repeat Exam, Male Based on your visit today, the exact cause of your abdominal (stomach) pain is not certain. However, you do have some of the early signs of appendicitis. Early in an appendix infection the symptoms can be similar to a simple "stomach ache" or "stomach flu". Therefore, the diagnosis can be hard to make.Since an appendix infection is a serious condition, it is important to know if this is the cause of your symptoms. WAITING for more time to pass and repeating the exam is the best way to find out whether you have appendicitis. Within the next 12-24 hours the cause of your stomach pain should become clear. It is important for you to watch for any new symptoms or worsening of your condition.(See below). Home Care: Rest until your next exam. No strenuous activities. Eat a diet low in fiber (called a low-residue diet). Foods allowed include refined breads, white rice, fruit and vegetable juices without pulp, tender meats. These foods will pass more easily through the intestine. Avoid whole-grain foods, whole fruits and vegetables, meats, seeds and nuts, fried or fatty foods, dairy, alcohol and spicy foods until your symptoms go away. In some cases, you may be asked not to eat or drink anything until you are re-examined. Return for another exam exactly as directed. Follow Up with your doctor or this facility as directed. [NOTE: If you had an X-ray, CT scan, ultrasound, or EKG (cardiogram), it will be reviewed by a specialist. You will be notified of any new findings that may affect your care.] Return Promptly before your next appointment or contact your doctor if any of the following occur: Pain gets worse or moves to the right lower abdomen New or worsening vomiting or diarrhea Swelling of the abdomen Unable to pass stool for more than three days New fever over 100.4 F (38.0 C), or rising fever Blood in vomit or bowel movements (dark red or black color) Weakness, dizziness or fainting Sucralfate Oral tablet What is this medicine? SUCRALFATE (JEANNIE carey fate) helps to treat ulcers of the intestine. How should I use this medicine? Take this medicine by mouth with a glass of water. Follow the directions on the prescription label. This medicine works best if you take it on an empty stomach, 1 hour before meals. Take your doses at regular intervals. Do not take your medicine more often than directed. Do not stop taking except on your doctor's advice. Talk to your ring striker regarding the use of this medicine in children. Special care may be needed. What side effects may I notice from receiving this medicine? Side effects that you should report to your doctor or health care center manager as soon as possible: allergic reactions like skin rash, itching or hives, swelling of the face, lips, or tongue difficulty breathing Side effects that usually do not require medical attention (report to your doctor or health care center manager if they continue or are bothersome): back pain constipation drowsy, dizzy dry mouth headache stomach upset, gas trouble sleeping What may interact with this medicine? antacid cimetidine digoxin ketoconazole phenytoin quinidine ranitidine some antibiotics like ciprofloxacin, norfloxacin, and ofloxacin theophylline thyroid hormones warfarin What if I miss a dose? If you miss a dose, take it as soon as you can. If it is almost time for your next dose, take only that dose. Do not take double or extra doses. Where should I keep my medicine? Keep out of the reach of children. Store at room temperature between 15 and 30 degrees C (59 and 86 degrees F). Keep container tightly closed. Throw away any unused medicine after the expiration date. What should I tell my health care provider before I take this medicine? They need to know if you have any of these conditions: kidney disease an unusual or allergic reaction to sucralfate, other medicines, foods, dyes, or preservatives or trying to get breast-feeding What should I watch for while using this medicine? Visit your doctor or health care center manager for regular check ups. Let your doctor know if your symptoms do not improve or if you feel worse. Antacids should not be taken within one half hour before or after this medicine. Tramadol Hydrochloride Oral tablet What is this medicine? TRAMADOL (TRA ma dole) is a pain reliever. It is used to treat moderate to severe pain in adults. How should I use this medicine? Take this medicine by mouth with a full glass of water. Follow the directions on the prescription label. If the medicine upsets your stomach, take it with food or milk. Do not take more medicine than you are told to take. Talk to your ring striker regarding the use of this medicine in children. Special care may be needed. What side effects may I notice from receiving this medicine? Side effects that you should report to your doctor or health care center manager as soon as possible: allergic reactions like skin rash, itching or hives, swelling of the face, lips, or tongue breathing difficulties, wheezing confusion itching light headedness or fainting spells redness, blistering, peeling or loosening of the skin, including inside the mouth seizures Side effects that usually do not require medical attention (report to your doctor or health care center manager if they continue or are bothersome): constipation dizziness drowsiness headache nausea, vomiting What may interact with this medicine? Do not take this medicine with any of the following medications: MAOIs like Carbex, Eldepryl, Marplan, Nardil, and Parnate This medicine may also interact with the following medications: alcohol or medicines that contain alcohol antihistamines benzodiazepines bupropion carbamazepine or oxcarbazepine clozapine cyclobenzaprine digoxin furazolidone linezolid medicines for depression, anxiety, or psychotic disturbances medicines for migraine headache like almotriptan, eletriptan, frovatriptan, naratriptan, rizatriptan, sumatriptan, zolmitriptan medicines for pain like pentazocine, buprenorphine, butorphanol, meperidine, nalbuphine, and propoxyphene medicines for sleep muscle relaxants naltrexone phenobarbital phenothiazines like perphenazine, thioridazine, chlorpromazine, mesoridazine, fluphenazine, prochlorperazine, promazine, and trifluoperazine procarbazine warfarin What if I miss a dose? If you miss a dose, take it as soon as you can. If it is almost time for your next dose, take only that dose. Do not take double or extra doses. Where should I keep my medicine? Keep out of the reach of children. Store at room temperature between 15 and 30 degrees C (59 and 86 degrees F). Keep container tightly closed. Throw away any unused medicine after the expiration date. What should I tell my health care provider before I take this medicine? They need to know if you have any of these conditions: brain tumor depression drug abuse or addiction head injury if you frequently drink alcohol containing drinks kidney disease or trouble passing urine liver disease lung disease, asthma, or breathing problems seizures or epilepsy suicidal thoughts, plans, or attempt; a previous suicide attempt by you or a family member an unusual or allergic reaction to tramadol, codeine, other medicines, foods, dyes, or preservatives or trying to get breast-feeding What should I watch for while using this medicine? Tell your doctor or health care center manager if your pain does not go away, if it gets worse, or if you have new or a different type of pain. You may develop tolerance to the medicine. Tolerance means that you will need a higher dose of the medicine for pain relief. Tolerance is normal and is expected if you take this medicine for a long time. Do not suddenly stop taking your medicine because you may develop a severe reaction. Your body becomes used to the medicine. This does NOT mean you are addicted. Addiction is a behavior related to getting and using a drug for a non-medical reason. If you have pain, you have a medical reason to take pain medicine. Your doctor will tell you how much medicine to take. If your doctor wants you to stop the medicine, the dose will be slowly lowered over time to avoid any side effects. You may get drowsy or dizzy. Do not drive, use machinery, or do anything that needs mental alertness until you know how this medicine affects you. Do not stand or sit up quickly, especially if you are an older patient. This reduces the risk of dizzy or fainting spells. Alcohol can increase or decrease the effects of this medicine. Avoid alcoholic drinks. You may have constipation. Try to have a bowel movement at least every 2 to 3 days. If you do not have a bowel movement for 3 days, call your doctor or health care center manager. Your mouth may get dry. Chewing sugarless gum or sucking hard candy, and drinking plenty of water may help. Contact your doctor if the problem does not go away or is severe. You have been given the following additional information: Abdominal Pain, Unknown Cause, (Male) Abdominal Pain, Possible Appendicitis [Male] Sucralfate Oral tablet Tramadol Hydrochloride Oral tablet (Electronically signed by Crys Freitas A.R.N.P. 11/09/2016 22:50)
--- NOTE | 2016-11-09 22:51 | ED MED RECONCILIATION SUMMARY ---
Patient: LUANNE FITZGERALD Medication Reconciliation Report [facility] VisitID: [id number] [address] [place] [address] 30y, M Registration Date/Time: 11/09/2016 Weight: 65.7 kg Height/Length: 70 in. BMI: 20.8 ALLERGIES: None The patient's Home Medications are listed below: THE FOLLOWING MEDICATIONS NEED TO BE RECONCILED: PriLOSEC Oral The source(s) of the original Home Medication information: patient The following Medications were given to the patient in the Emergency Department: Toradol [IVP] IVP 30 mg, administered: 11/09/2016 9:22:00 PM GI COCKTAIL WHITE [PO] PO 30 mL, administered: 11/09/2016 9:37:00 PM The following Medications were prescribed to the patient: Carafate 1 gm tablets: take 1 orally four times daily (1 hour before meals and at bedtime). Dispense sixty (60). No refills. Substitution is permissible. -- Crys Freitas A.R.NAyeshaP. Ultram 50 mg tablets: take 1-2 orally every 6 hours as needed for pain. Dispense twenty (20). No refills. Substitution is permissible. -- Crys Freitas A.R.N.P.
== END 2016-11-09 22:00 | disposition home or self-care (01) ==
LOC: ED SRH 20:16
DX: R10.33 Periumbilical pain (principal)
CPT/HCPCS: 90004; 90100; 92235; 92530; 95059

== ENCOUNTER 2016-11-15 18:42 | Emergency (ER) | payer SELFPAY ==
--- NOTE | 2016-11-15 19:17 | DIAGNOSTIC IMAGING REPORT ---
PROCEDURE: US ABDOMEN ULTRASOUND-LIMITED INDICATION: RUQ PAIN TECHNIQUE: Baker scale and color Doppler sonographic images of the abdomen were obtained. COMPARISON: None. FINDINGS: Gallbladder is normal. No evidence of gallstones. Common duct is normal (3 mm). Portions of the liver and right kidney are seen, and are normal. Pancreas is obscured by bowel gas. IMPRESSION: 1. Negative ultrasound of the gallbladder and right upper quadrant.
--- NOTE | 2016-11-15 20:46 | ED NURSING NOTES ---
Clinical Report - Nurses [facility] [address] [place] [address] 11/15/2016 18:42 Patient: LUANNE FITZGERALD TRIAGE Triage time 18:47. Acuity: LEVEL 3. Chief Complaint: ABDOMINAL PAIN, VOMITING and DIARRHEA. Alert. No acute distress. ADONIS COMA SCORE: Adonis Coma Scale: 15- eyes open spontaneously (4); best verbal response- oriented x 4 (5); best motor response- obeys commands (6). --18:55 Fabiana Dunlap R.N. 18:47 11/15/16. BP: 118/77. HR: 73. RR: 18. O2 saturation: 98%. Temp: 97.9 F (oral). Pain level now: 01/29. --18:55 Fabiana Dunlap R.N. Weight: 68 kg. Height/Length: 70 inches. BMI: 21.5. --18:52 Fabiana Dunlap R.N. Medications PriLOSEC Oral. --18:48 Fabiana Dunlap R.N. Sucralfate Oral 1 gm, 5 times a day. --18:49 Fabiana Dunlap R.N. Medication/allergy information source: the patient. --18:55 Fabiana Dunlap R.N. Allergies None. --18:48 Fabiana Dunlap R.N. History Arrived by private vehicle. Historian: patient. Accompanied by friend. Primary physician (none). Onset. (about 1 week). ( intermittent,). Relates location as generalized across abdomen. ( has been seen at [facility]). SOCIAL HX: Former smoker. History of drug use: marijuana. No alcohol use. FALL RISK ASSESSMENT: Fall risk assessment completed. No fall risk identified. FUNCTIONAL ASSESSMENT: Functional assessment: no impairments noted. LEARNING NEEDS ASSESSMENT: The learning needs assessment revealed no barriers. --18:55 Fabiana Dunlap R.N. PROBLEMS: Abdominal Pain. Asthma. --18:50 Fabiana Dunlap R.N. ADDITIONAL SURGERIES: Oral surgery. --18:50 Fabiana Dunlap R.N. Assessment GENERAL / NEURO / PSYCH: Alert. Oriented X 4. Appears in no acute distress. Patient appears calm and cooperative. RESPIRATORY: Respirations not labored. SKIN: Skin is warm and dry. --18:55 Fabiana Dunlap R.N. Interventions ID band on patient. To treatment room. --18:55 Fabiana Dunlap R.N. PHYSICAL ASSESSMENT 18:56 11/15/16. Ambulatory to room. Patient gowned. GENERAL / NEURO / PSYCH: Alert. Oriented X 4. Appears in no acute distress. RESPIRATORY: Respirations not labored. SKIN: Skin is warm and dry. --18:56 Fabiana Dunlap R.N. NURSING PROGRESS NOTES 18:56 11/15/16. Patient gowned. Head of bed elevated. Call light placed in reach. Side rails up x 1. Bed placed in lowest position. Brakes of bed on. --18:56 Fabiana Dunlap R.N. 19:01 11/15/2016 Site #1 started via IV in the left forearm with an 20g angiocath, with aseptic technique and good blood return; one attempt. Blood drawn: rainbow set. Labeled in the presence of the patient and sent to the lab. Saline lock flushed with 10 mL saline. --19:01 Saima Armendariz 19:02 11/15/16. ( US at bedside). --19:02 Saima Armendariz 19:10 11/15/2016 Started bag #1 1000 mL IV Fluids IV NS (Saline); at 1000 mL/hr over 1 hour(s) via site #1. IV patency established. IV site checked: no pain, redness, or swelling. IV flushed thoroughly pre- and post-medication administration. --19:15 Fabiana Dunlap R.N. 19:10 11/15/2016 Toradol IVP 30 mg given over 2 minute(s) via site #1. Allergies verified and confirmed 5 rights. IV patency established. IV site checked: no pain, redness, or swelling. IV flushed thoroughly pre- and post-medication administration. IVP given by RN. --19:15 Fabiana Dunlap R.N. Care transferred and report received. --19:21 Xiomara Hartman R.N. 19:41 11/15/2016 PROTONIX (Pantoprazole Sodium) IVP 40 mg given over 2 minute(s) via site #1. Allergies verified and confirmed 5 rights. IV patency established. IV site checked: no pain, redness, or swelling. IV flushed thoroughly pre- and post-medication administration. IVP given by RN. --19:46 Xiomara Hartman R.N. 19:46 11/15/16. BP: 121/66. HR: 98. RR: 15. O2 saturation: 98% on room air. Pain level now: 07/01. --19:47 Xiomara Hartman R.N. ( pt given urinal and sample requested.). --19:48 Xiomara Hartman R.N. ( pt states he is unable to urinate at this time.). --20:05 Xiomara Hartman R.N. 20:09 11/15/2016 Started bag #2 1000 mL IV Fluids IV NS (Saline); at 1000 mL/hr via site #1. Allergies verified and confirmed 5 rights. IV patency established. IV site checked: no pain, redness, or swelling. IV flushed thoroughly pre- and post-medication administration. --20:09 Xiomara Hartman R.N. 20:09 11/15/2016 IV Fluids IV NS Discontinued: bag #1 completed. Total amount infused: 1000 mL. IV patency established. IV site checked: no pain, redness, or swelling. IV flushed thoroughly. --20:09 Xiomara Hartman R.N. 21:00. The patient is calm and resting quietly. SKIN: Skin is warm and dry. Skin color within normal limits. --23:02 En Singh R.N. DISPOSITION / DISCHARGE Departure time: 2101. Condition at departure: stable. No learning barriers present. Discharge instructions provided and reviewed with parent partner and the patient. Reviewed medication(s) side effects, precautions, dosing and course information. Prescription(s) given to the patient. Patient and parent partner verbalized understanding. Written instructions provided in Macedonian. The patient was discharged home and accompanied by parent partner. He left the Emergency Department ambulatory and via private vehicle. [employer] driving. FALL RISK ASSESSMENT: Fall risk assessment completed. No fall risk identified. --23:02 En Singh R.N. 20:57 11/15/16. BP: 110/64. HR: 81. RR: 15. O2 saturation: 98% on room air. Pain level now: 07/29. --23:02 En Singh R.N. Locked/Released at 11/15/2016 23:03 by En Singh R.N.
--- NOTE | 2016-11-15 20:46 | ED CLINICAL REPORT ---
Clinical Report - Physicians/Mid Levels [facility] [address] [place] [address] 11/15/2016 18:42 Patient: LUANNE FITZGERALD Time Seen: 18:58 [place] 2016. Arrived- By private vehicle. Historian- patient. HISTORY OF PRESENT ILLNESS Chief Complaint: ABDOMINAL PAIN and FLANK PAIN. This started 8 days and is still present. It is described as "pain" and it is described as located in the epigastric area and in the upper abdomen. The patient has had nausea and vomiting. (Epigastric pain off/ on. Pt reports pain worsens about 2 hours after meals when he develops emesis. dENIES ANY RECENT TRAUMA. DENIES SHORTNESS OF BREATH OR CHEST PAIN. DENIES COUGH.). Similar symptoms previously: Recent medical care: The patient was seen recently in the emergency department (09 of November). REVIEW OF SYSTEMS No constipation, black stools, hematemesis, difficulty with urination or pain with urination. No urinary frequency, fever, headache, sore throat or blurred vision. No joint pain or chills. All systems otherwise negative, except as recorded above. PAST HISTORY Problems: Abdominal Pain. Asthma. Additional Surgeries: Oral surgery. Medications: Sucralfate Oral 1 gm, 5 times a day. PriLOSEC Oral. Allergies: None. SOCIAL HISTORY No alcohol use. ADDITIONAL NOTES The nursing notes have been reviewed. PHYSICAL EXAM Vital Signs: 11/15/2016 18:47 BP: 118/77. HR: 73. RR: 18. O2 saturation: 98%. Temp: 97.9 F. Pain level now: 9/10. Appearance: Alert. ENT: Ears normal. Nose normal. Neck: Normal inspection. CVS: Normal heart rate and rhythm. Heart sounds normal. Respiratory: No respiratory distress. No accessory muscle use or decreased air movement. Abdomen: Mild tenderness in the upper abdomen. The bowel sounds are not abnormal. No distention or guarding. Back: Normal inspection. Rectal: Rectal exam nontender. Skin: Skin warm. Normal skin color. Neuro: Oriented X 3. LABS, X-RAYS, AND EKG Laboratory Tests: CBC w Diff: (FIONA: 11/15/2016 19:00) ( [facility] 11/15/2016 19:15) Final results Test Result Flag Units (Reference) WHITE BLOOD COUNT 13.9 H K/uL (4.5-11.5) RED BLOOD COUNT 4.79 M/uL (4.50-5.90) HEMOGLOBIN 14.3 gm/dL (13.5-17.5) HEMATOCRIT 42.8 % (41.0-53.0) MEAN CELL VOLUME 90 fL (80-100) MEAN CORPUSCULAR HGB 30 pg (26-34) MEAN CORPUSCULAR HGB CONC 34 g/dL (31-37) RED CELL DISTRIBUTION WIDTH 12.9 % (11.6-14.8) PLATELET COUNT 327 K/uL (150-400) NEUTROPHIL % 57.4 % (50-75) LYMPH % 20.8 L % (25-40) MONO % 4.1 % (3-14) EOSINOPHIL % 17.4 H % (0-4) BASOPHIL % 0.3 % (0-2) CMP: (FIONA: 11/15/2016 19:00) ( [facility] 11/15/2016 19:21) Final results Test Result Flag Units (Reference) GLUCOSE 121 H mg/dL (70-110) BUN 12 mg/dL (7-18) CREATININE 1.3 mg/dL (0.6-1.3) Estimated GFR >60 mL/min Estimated GFR- >60 mL/min Note: Persistent reduction over 3 months in eGFR<60 mL/min/1.73 m2 defines CKD. Patients with eGFR values>=60 mL/min/1.73 m2 may also have CKD if evidence ofpersistent proteinuria. Additional information may be foundat www.[email or web address].org. SODIUM 141 mmol/L (136-145) POTASSIUM 3.8 mmol/L (3.5-5.1) CHLORIDE 104 mmol/L (98-107) CARBON DIOXIDE 30 mmol/L (21-32) CALCIUM 8.8 mg/dL (8.5-10.1) TOTAL PROTEIN 7.1 g/dL (6.4-8.2) ALBUMIN 4.0 g/dL (3.3-5.0) BILIRUBIN, TOTAL 0.9 mg/dL (0.0-1.0) ALKALINE PHOSPHATASE 81 U/L (46-116) AST (SGOT) 21 U/L (15-37) ALT (SGPT) 25 U/L (12-78) LIPASE 124 U/L (73-393) . Note - Tests: (US: IMPRESSION: 1. Negative ultrasound of the gallbladder and right upper quadrant. Electronically Final signed by:Ezra Day MD 11/15/2016 7:12:23 PM). PROGRESS AND PROCEDURES Course of Care: During the time in the ED, the following DDX were considered: acute surgical abdomen, hemodynamic or metabolic instability, dehydration, gastroenteritis-viral, food borne, or bacterial, food intolerance, irritable or inflammatory bowel, infection, sepsis. 11/15/2016 19:46 BP: 121/66. HR: 98. RR: 15. O2 saturation: 98%. Pain level now: 2/10. Patient is stable. Symptoms better. Patient/family counseled. Differential Diagnosis: I considered gastric etiology, gastritis, gastroenteritis, peptic ulcer disease, gastroesophageal reflux disease, esophageal perforation, acute appendicitis, diverticulitis, small bowel obstruction, adhesions, splenic injury and splenic rupture as a possible cause of abdominal pain in this patient. This is a partial list of diagnoses considered. CLINICAL IMPRESSION Acute abdominal pain of unknown cause. INSTRUCTIONS Drink plenty of fluids. (GI: [phone]). Prescription Medications: Zofran (orally disintegrating tablets) 4 mg: take 1 orally every 6 hours for 5 days as needed for nausea and vomiting. Dispense twenty (20). No refill. Substitution is permissible. Pepcid 20 mg tablets: Take 1 orally every 12 hours. Dispense thirty (30). No refills. Substitution is permissible. Reglan 10 mg tablets: take 1 orally every 8 hours for 5 days as needed for nausea or vomiting. Dispense fifteen (15). No refills. Substitution is permissible. Follow-up: Follow up with your doctor in four. (Electronically signed by Daphne Hall P.A.-C 11/15/2016 20:53)
--- NOTE | 2016-11-15 20:46 | ED NURSING NOTES ---
Clinical Report - Nurses [facility] [address] [place] [address] 11/15/2016 18:42 Patient: LUANNE FITZGERALD TRIAGE Triage time 18:47. Acuity: LEVEL 3. Chief Complaint: ABDOMINAL PAIN, VOMITING and DIARRHEA. Alert. No acute distress. ADONIS COMA SCORE: Adonis Coma Scale: 15- eyes open spontaneously (4); best verbal response- oriented x 4 (5); best motor response- obeys commands (6). --18:55 Fabiana Dunlap R.N. 18:47 11/15/16. BP: 118/77. HR: 73. RR: 18. O2 saturation: 98%. Temp: 97.9 F (oral). Pain level now: 01/29. --18:55 Fabiana Dunlap R.N. Weight: 68 kg. Height/Length: 70 inches. BMI: 21.5. --18:52 Fabiana Dunlap R.N. Medications PriLOSEC Oral. --18:48 Fabiana Dunlap R.N. Sucralfate Oral 1 gm, 5 times a day. --18:49 Fabiana Dunlap R.N. Medication/allergy information source: the patient. --18:55 Fabiana Dunlap R.N. Allergies None. --18:48 Fabiana Dunlap R.N. History Arrived by private vehicle. Historian: patient. Accompanied by friend. Primary physician (none). Onset. (about 1 week). ( intermittent,). Relates location as generalized across abdomen. ( has been seen at [facility]). SOCIAL HX: Former smoker. History of drug use: marijuana. No alcohol use. FALL RISK ASSESSMENT: Fall risk assessment completed. No fall risk identified. FUNCTIONAL ASSESSMENT: Functional assessment: no impairments noted. LEARNING NEEDS ASSESSMENT: The learning needs assessment revealed no barriers. --18:55 Fabiana Dunlap R.N. PROBLEMS: Abdominal Pain. Asthma. --18:50 Fabiana Dunlap R.N. ADDITIONAL SURGERIES: Oral surgery. --18:50 Fabiana Dunlap R.N. Assessment GENERAL / NEURO / PSYCH: Alert. Oriented X 4. Appears in no acute distress. Patient appears calm and cooperative. RESPIRATORY: Respirations not labored. SKIN: Skin is warm and dry. --18:55 Fabiana Dunlap R.N. Interventions ID band on patient. To treatment room. --18:55 Fabiana Dunlap R.N. PHYSICAL ASSESSMENT 18:56 11/15/16. Ambulatory to room. Patient gowned. GENERAL / NEURO / PSYCH: Alert. Oriented X 4. Appears in no acute distress. RESPIRATORY: Respirations not labored. SKIN: Skin is warm and dry. --18:56 Fabiana Dunlap R.N. NURSING PROGRESS NOTES 18:56 11/15/16. Patient gowned. Head of bed elevated. Call light placed in reach. Side rails up x 1. Bed placed in lowest position. Brakes of bed on. --18:56 Fabiana Dunlap R.N. 19:01 11/15/2016 Site #1 started via IV in the left forearm with an 20g angiocath, with aseptic technique and good blood return; one attempt. Blood drawn: rainbow set. Labeled in the presence of the patient and sent to the lab. Saline lock flushed with 10 mL saline. --19:01 Saima Armendariz 19:02 11/15/16. ( US at bedside). --19:02 Saima Armendariz 19:10 11/15/2016 Started bag #1 1000 mL IV Fluids IV NS (Saline); at 1000 mL/hr over 1 hour(s) via site #1. IV patency established. IV site checked: no pain, redness, or swelling. IV flushed thoroughly pre- and post-medication administration. --19:15 Fabiana Dunlap R.N. 19:10 11/15/2016 Toradol IVP 30 mg given over 2 minute(s) via site #1. Allergies verified and confirmed 5 rights. IV patency established. IV site checked: no pain, redness, or swelling. IV flushed thoroughly pre- and post-medication administration. IVP given by RN. --19:15 Fabiana Dunlap R.N. Care transferred and report received. --19:21 Xiomara Hartman R.N. 19:41 11/15/2016 PROTONIX (Pantoprazole Sodium) IVP 40 mg given over 2 minute(s) via site #1. Allergies verified and confirmed 5 rights. IV patency established. IV site checked: no pain, redness, or swelling. IV flushed thoroughly pre- and post-medication administration. IVP given by RN. --19:46 Xiomara Hartman R.N. 19:46 11/15/16. BP: 121/66. HR: 98. RR: 15. O2 saturation: 98% on room air. Pain level now: 07/01. --19:47 Xiomara Hartman R.N. ( pt given urinal and sample requested.). --19:48 Xiomara Hartman R.N. ( pt states he is unable to urinate at this time.). --20:05 Xiomara Hartman R.N. 20:09 11/15/2016 Started bag #2 1000 mL IV Fluids IV NS (Saline); at 1000 mL/hr via site #1. Allergies verified and confirmed 5 rights. IV patency established. IV site checked: no pain, redness, or swelling. IV flushed thoroughly pre- and post-medication administration. --20:09 Xiomara Hartman R.N. 20:09 11/15/2016 IV Fluids IV NS Discontinued: bag #1 completed. Total amount infused: 1000 mL. IV patency established. IV site checked: no pain, redness, or swelling. IV flushed thoroughly. --20:09 Xiomara Hartman R.N. 21:00. The patient is calm and resting quietly. SKIN: Skin is warm and dry. Skin color within normal limits. --23:02 En Singh R.N. DISPOSITION / DISCHARGE Departure time: 2101. Condition at departure: stable. No learning barriers present. Discharge instructions provided and reviewed with shoes hand sewer and the patient. Reviewed medication(s) side effects, precautions, dosing and course information. Prescription(s) given to the patient. Patient and shoes hand sewer verbalized understanding. Written instructions provided in Nepali. The patient was discharged home and accompanied by shoes hand sewer. He left the Emergency Department ambulatory and via private vehicle. Telephone Repairer driving. FALL RISK ASSESSMENT: Fall risk assessment completed. No fall risk identified. --23:02 En Singh R.N. 20:57 11/15/16. BP: 110/64. HR: 81. RR: 15. O2 saturation: 98% on room air. Pain level now: 07/29. --23:02 En Singh R.N. Locked/Released at 11/15/2016 23:03 by En Singh R.N.
--- NOTE | 2016-11-15 20:46 | ED ORDER SUMMARY ---
..... Patient: LUANNE FITZGERALD OrderSheet [facility] VisitID: [id number] [address] [place] [address] 30y, M Registration Date/Time: 11/15/2016 ORDER SHEET Weight: 68.0 kg Allergies: None GENERAL ORDERS: US Abdomen Limited (No) Urgent (18:53 11/15/2016 EKoroleva P.A.-C) (Ack 18:58 LNations ER Tech1) (19:14 Larry R.N.) CBC w Diff Urgent (18:53 11/15/2016 EKoroleva P.A.-C) (Ack 18:57 LNations ER Tech1) (19:01 ASchmuck) CMP Urgent (18:53 11/15/2016 EKoroleva P.A.-C) (Ack 18:59 LNations ER Tech1) (19:01 ASchmuck) Lipase Urgent (18:53 11/15/2016 EKoroleva P.A.-C) (Ack 18:58 LNations ER Tech1) (19:01 ASchmuck) UA-Culture if indicated Urgent (18:57 11/15/2016 EKoroleva P.A.-C) (Ack 18:59 LNations ER Tech1) (Cancelled: Other20:45 EKoroleva P.A.-C) MEDICATION ORDERS: IV FLUIDS: IV NS : initial bolus 1000 mL (1000 mL/hr), then 1000 mL/hr for X1 (NOW); Jeffrey (18:53 11/15/2016 EKoroleva P.A.-C) (Ack 18:59 Larry R.N.) (19:15 Larry R.N.) Toradol IV 30 mg (NOW) (18:53 11/15/2016 EKoroleva P.A.-C) (Ack 18:59 Larry R.N.) (19:15 Larry R.N.) Protonix IVP 40mg 40 mg (Mix in NS 10ml over 2min) (19:04 11/15/2016 EKoroleva P.A.-C) (Ack 19:20 RCollier R.N.) (19:46 RCollier R.N.) ORDER SHEET NOTES: [Electronically signed by Daphne Hall P.A.-C (20:53 11/15/2016)] [Electronically signed by En Singh R.N. (23:03 11/15/2016)] [Electronically locked/signed by En Singh R.N. (23:03 11/15/2016)]
--- NOTE | 2016-11-15 20:46 | ED ORDER SUMMARY ---
..... Patient: LUANNE FITZGERALD OrderSheet [facility] VisitID: [id number] [address] [place] [address] 30y, M Registration Date/Time: 11/15/2016 ORDER SHEET Weight: 68.0 kg Allergies: None GENERAL ORDERS: US Abdomen Limited (No) Urgent (18:53 11/15/2016 EKoroleva P.A.-C) (Ack 18:58 LNations ER Tech1) (19:14 Larry R.N.) CBC w Diff Urgent (18:53 11/15/2016 EKoroleva P.A.-C) (Ack 18:57 LNations ER Tech1) (19:01 ASchmuck) CMP Urgent (18:53 11/15/2016 EKoroleva P.A.-C) (Ack 18:59 LNations ER Tech1) (19:01 ASchmuck) Lipase Urgent (18:53 11/15/2016 EKoroleva P.A.-C) (Ack 18:58 LNations ER Tech1) (19:01 ASchmuck) UA-Culture if indicated Urgent (18:57 11/15/2016 EKoroleva P.A.-C) (Ack 18:59 LNations ER Tech1) (Cancelled: Other20:45 EKoroleva P.A.-C) MEDICATION ORDERS: IV FLUIDS: IV NS : initial bolus 1000 mL (1000 mL/hr), then 1000 mL/hr for X1 (NOW); Jeffrey (18:53 11/15/2016 EKoroleva P.A.-C) (Ack 18:59 Larry R.N.) (19:15 Larry R.N.) Toradol IV 30 mg (NOW) (18:53 11/15/2016 EKoroleva P.A.-C) (Ack 18:59 Larry R.N.) (19:15 Larry R.N.) Protonix IVP 40mg 40 mg (Mix in NS 10ml over 2min) (19:04 11/15/2016 EKoroleva P.A.-C) (Ack 19:20 RCollier R.N.) (19:46 RCollier R.N.) ORDER SHEET NOTES: [Electronically signed by Daphne Hall P.A.-C (20:53 11/15/2016)] [Electronically signed by En Singh R.N. (23:03 11/15/2016)] [Electronically locked/signed by En Singh R.N. (23:03 11/15/2016)]
--- NOTE | 2016-11-15 23:03 | ED DISCHARGE INSTRUCTIONS ---
Patient: LUANNE FITZGERALD General Instructions [facility] VisitID: [id number] [address] [place] [address] 30y, M Registration Date/Time: 11/15/2016 Acute abdominal pain of unknown cause. INSTRUCTIONS Drink plenty of fluids. (GI: [phone]). Prescription Medications: Zofran (orally disintegrating tablets) 4 mg: take 1 orally every 6 hours for 5 days as needed for nausea and vomiting. Dispense twenty (20). No refill. Substitution is permissible. Pepcid 20 mg tablets: Take 1 orally every 12 hours. Dispense thirty (30). No refills. Substitution is permissible. Reglan 10 mg tablets: take 1 orally every 8 hours for 5 days as needed for nausea or vomiting. Dispense fifteen (15). No refills. Substitution is permissible. Follow-up: Follow up with your doctor in four. ADDITIONAL INFORMATION Epigastric Pain (Uncertain Cause) Epigastric pain can be a sign of disease in the upper abdomen. Common causes include: Acid reflux (stomach acid flowing up into the esophagus) Gastritis (irritation of the stomach lining) Peptic Ulcer Disease Inflammation of the pancreas Gallstone Infection in the gallbladder Pain may be dull or burning. It may spread upward to the chest or to the back. There may be other symptoms such as belching, bloating, cramps or hunger pains. There may be weight loss or poor appetite, nausea or vomiting. Since the diagnosis of your pain is not certain yet, further tests will be needed. Sometimes the doctor will treat you for the most likely condition to see if there is improvement before doing further tests. Home Care: Unless told otherwise, you may try antacids (Mylanta or Maalox) help neutralize stomach acid. This may relieve your pain. Take 1-2 tablespoons or tablets one hour after meals and at bedtime. The liquid form coats the stomach better than the chewable tablets and is preferred. If Tagamet (cimetidine), Zantac (ranitidine), or Carafate (sucralfate) has also been prescribed, allow one hour between taking this medicine and taking the antacids. Avoid foods that irritate the stomach. Follow a light diet until you are feeling better. Avoid alcohol, caffeine, and tobacco. Talk to your doctor before taking any uhmb-czz-gadcdeg medicine that contains aspirin or an anti-inflammatory drug such as ibuprofen, Advil, Motrin, Naprosyn, or Aleve. Follow Up with your doctor or as advised if you do not improve over the next 48 hours. Get Prompt Medical Attention if any of the following occur: Stomach pain worsens or moves to the right lower part of the abdomen Chest pain appears, or if it worsens or spreads to the chest, back, neck, shoulder, or arm Frequent vomiting (cant keep down liquids) Blood in the stool or vomit (red or black color) Feeling weak or dizzy, fainting, or having trouble breathing Fever of 100.4F (38C) or higher, or as directed by your healthcare provider Abdominal swelling Symptoms With Uncertain Cause [Adult] Based on the exam and any tests that were performed today, the exact cause of your symptoms is not certain. While your condition does not seem serious, the signs of a serious problem may take more time to appear. Therefore, it is important for you to watch for any new symptoms or worsening of your condition.Follow up with your doctor or this facility, as directed.A repeat physical exam or additional testing at a later time may uncover a cause for your symptoms that is not evident today. Home Care: Resume your usual activities and diet when this feels comfortable to do so. Follow Up with your doctor, or as advised by our staff.Contact your doctor sooner if your symptoms do not begin to improve in the next few days. [NOTE: If you had an x-ray, CT scan, ultrasound, or ECG (electrocardiogram), it will be reviewed by a specialist. You will be notified of any new findings that may affect your care.] Get Prompt Medical Attention if any of the following occur: Current symptoms get worse New symptoms appear Pender Diet A bland diet is used for patients with an upset stomach. It consists of foods that are mild and easy to digest. It is better to eat small frequent meals rather than three large meals a day. BEVERAGES OK: Fruit juices, non-caffeinated teas and coffee, non-carbonated barber AVOID: Carbonated beverage, caffeinated tea and coffee, all alcoholic beverages BREAD OK: Refined white, wheat or rye bread, renetta or soda crackers, [place] toast, plain rolls, bagels AVOID: Whole-grain bread CEREAL OK: Refined cereals: cooked or ready to eat AVOID: Whole grain cereals and granola, or those containing bran, seeds or nuts DESSERTS OK: Peanut butter and all others except those to "avoid" AVOID: Chocolate, cocoa, coconut, popcorn, nuts, seeds, jam, marmalade FRUITS OK: Canned, cooked, frozen or fresh fruits without seeds or tough skin AVOID: Olives, skin and seeds of fruit MEATS OK: All fresh or preserved meat, fish and fowl AVOID: Any that are prepared with those spices to "avoid" CHEESE & EGGS OK: Eggs, cottage cheese, cream cheese, other cheeses AVOID: All cheeses made with those spices to "avoid" POTATOES & PASTA OK: Potato, rice, macaroni, noodles, spaghetti AVOID: None SOUPS OK: All soups without heavy seasoning AVOID: Soups made with those spices to "avoid" VEGETABLES OK: Canned, cooked, fresh or frozen mildly flavored vegetables without seeds, skins or coarse fiber AVOID: Vegetables prepared with those spices to "avoid"; skin and seeds of vegetables and those with coarse fiber SPICES OK: Salt, lemon and [place] juice, vinegar, all extracts, varun, cinnamon, thyme, mace, allspice, paprika AVOID: [place] powder, cloves, pepper, seed spices, garlic, gravy pickles, highly seasoned salad dressings Clear Liquid Diet Clear liquids are any liquid that you can see through as well as those that are very easy to digest. This is used while the body is recovering from irritation or infection of the stomach or intestinal tract. It may also be used before special procedures or surgery. This diet is to be used no more than three days. You may include the following items. Adults Adults should drink a total of 23 quarts of liquid per day. It may be easier to drink small frequent servings rather than a few large ones. Liquids can include: Fruit juices.Strained orange juice or lemonade (no pulp), apple, grape and cranberry juice, clear fruit drinks, sports drinks Beverages.Sport drinks, sodas, mineral water (plain or flavored), tea, black coffee, liquid gelatin (add twice the recommended amount of water) Soups.Clear broth, consomm, bouillon Desserts.Plain gelatin, popsicles, fruit juice bars Children Over 2 years old The following liquids are acceptable for children over age 2: Fruit juices.Strained orange juice or lemonade (no pulp), apple, grape and cranberry juice, clear fruit drinks Beverages. Sports drinks, sodas, mineral water (plain or flavored), tea, liquid gelatin (add twice the recommended amount of water) Soups. Clear broth, consomm, bouillon Desserts. Plain gelatin, popsicles, fruit juice bars Children under 2 years old Oral rehydration fluids such are available at drug stores and most grocery stores without a prescription. You have been given the following additional information: Epigastric Pain (Uncertain Cause) Symptoms With Uncertain Cause Diet, Pender (Adult) Diet, Clear Liquid (Electronically signed by Daphne Hall P.A.-C 11/15/2016 20:53)
--- NOTE | 2016-11-15 23:04 | ED MED RECONCILIATION SUMMARY ---
Patient: LUANNE FITZGERALD Medication Reconciliation Report [facility] VisitID: [id number] [place] [address] 30y, M Registration Date/Time: 11/15/2016 Weight: 68.0 kg Height/Length: 70 in. BMI: 21.5 ALLERGIES: None The patient's Home Medications are listed below: THE FOLLOWING MEDICATIONS NEED TO BE RECONCILED: PriLOSEC Oral Sucralfate Oral 1 gm, 5 times a day The source(s) of the original Home Medication information: patient The following Medications were given to the patient in the Emergency Department: IV NS IV Fluids bolus 0, then 1000 mL/hr, administered: 11/15/2016 7:10:00 PM Toradol [IVP] IVP 30 mg, administered: 11/15/2016 7:10:00 PM PROTONIX [IVP] IVP 40 mg, administered: 11/15/2016 7:41:00 PM IV NS IV Fluids bolus 0, then 1000 mL/hr, administered: 11/15/2016 8:09:00 PM The following Medications were prescribed to the patient: Zofran (orally disintegrating tablets) 4 mg: take 1 orally every 6 hours for 5 days as needed for nausea and vomiting. Dispense twenty (20). No refill. Substitution is permissible. -- Daphne Hall, P.A.-Carlyn Pepcid 20 mg tablets: Take 1 orally every 12 hours. Dispense thirty (30). No refills. Substitution is permissible. -- Daphne Hall, P.A.-Carlyn Reglan 10 mg tablets: take 1 orally every 8 hours for 5 days as needed for nausea or vomiting. Dispense fifteen (15). No refills. Substitution is permissible. -- Daphne Hall, P.A.-C
--- NOTE | 2016-11-15 23:04 | ED MAR SUMMARY ---
..... Medication Administration Record [facility] [address], [place] [address] Patient: LUANNE FITZGERALD Visit ID: [id number] 30y, M Weight: 68.0 kg Height/Length: 70 in BMI: 21.5 ALLERGIES: None Start 19:10 11/15/2016 Fabiana Dunlap R.N., Stop 20:11/15/2016 Xiomara Hartman R.N. Medication Administered: IV NS (SALINE), Dose: IV Fluids over 1 hour(s), Rate: 1000 mL/hr, Dispensed: 1000 mL bag, Site: #1 left forearm. Medication Ordered: IV NS : initial bolus 1000 mL (1000 mL/hr), then 1000 mL/hr for X1 (NOW); Jeffrey. Given 19:11/15/2016 Fabiana Dunlap R.N. Medication Administered: TORADOL [IVP], Dose: 30 mg IVP over 2 minute(s), Site: #1 left forearm. Medication Ordered: Toradol IV 30 mg (NOW). Given 19:41 11/15/2016 Xoimara Hartman R.N. Medication Administered: PROTONIX [IVP] (PANTOPRAZOLE SODIUM), Dose: 40 mg IVP over 2 minute(s), Site: #1 left forearm. Medication Ordered: Protonix IVP 40mg 40 mg (Mix in NS 10ml over 2min). Start 20:11/15/2016 Xiomara Hartman R.N. Medication Administered: IV NS (SALINE), Dose: IV Fluids, Rate: 1000 mL/hr, Dispensed: 1000 mL bag, Site: #1 left forearm. Medication Ordered: IV NS : initial bolus 1000 mL (1000 mL/hr), then 1000 mL/hr for X1 (NOW); Jeffrey.
--- NOTE | 2016-11-15 23:04 | ED MED RECONCILIATION SUMMARY ---
Patient: LUANNE FITZGERALD Medication Reconciliation Report [facility] VisitID: [id number] [place] [address] 30y, M Registration Date/Time: 11/15/2016 Weight: 68.0 kg Height/Length: 70 in. BMI: 21.5 ALLERGIES: None The patient's Home Medications are listed below: THE FOLLOWING MEDICATIONS NEED TO BE RECONCILED: PriLOSEC Oral Sucralfate Oral 1 gm, 5 times a day The source(s) of the original Home Medication information: patient The following Medications were given to the patient in the Emergency Department: IV NS IV Fluids bolus 0, then 1000 mL/hr, administered: 11/15/2016 7:10:00 PM Toradol [IVP] IVP 30 mg, administered: 11/15/2016 7:10:00 PM PROTONIX [IVP] IVP 40 mg, administered: 11/15/2016 7:41:00 PM IV NS IV Fluids bolus 0, then 1000 mL/hr, administered: 11/15/2016 8:09:00 PM The following Medications were prescribed to the patient: Zofran (orally disintegrating tablets) 4 mg: take 1 orally every 6 hours for 5 days as needed for nausea and vomiting. Dispense twenty (20). No refill. Substitution is permissible. -- Daphne Hall, P.A.-Carlyn Pepcid 20 mg tablets: Take 1 orally every 12 hours. Dispense thirty (30). No refills. Substitution is permissible. -- Daphne Hall, P.A.-Carlyn Reglan 10 mg tablets: take 1 orally every 8 hours for 5 days as needed for nausea or vomiting. Dispense fifteen (15). No refills. Substitution is permissible. -- Daphne Hall, P.A.-C
--- NOTE | 2016-11-15 23:04 | ED MAR SUMMARY ---
..... Medication Administration Record [facility] [address], [place] [address] Patient: LUANNE FITZGERALD Visit ID: [id number] 30y, M Weight: 68.0 kg Height/Length: 70 in BMI: 21.5 ALLERGIES: None Start 19:10 11/15/2016 Fabiana Dunlap R.N., Stop 20:11/15/2016 Xiomara Hartman R.N. Medication Administered: IV NS (SALINE), Dose: IV Fluids over 1 hour(s), Rate: 1000 mL/hr, Dispensed: 1000 mL bag, Site: #1 left forearm. Medication Ordered: IV NS : initial bolus 1000 mL (1000 mL/hr), then 1000 mL/hr for X1 (NOW); Jeffrey. Given 19:11/15/2016 Fabiana Dunlap R.N. Medication Administered: TORADOL [IVP], Dose: 30 mg IVP over 2 minute(s), Site: #1 left forearm. Medication Ordered: Toradol IV 30 mg (NOW). Given 19:41 11/15/2016 Xiomara Hartman R.N. Medication Administered: PROTONIX [IVP] (PANTOPRAZOLE SODIUM), Dose: 40 mg IVP over 2 minute(s), Site: #1 left forearm. Medication Ordered: Protonix IVP 40mg 40 mg (Mix in NS 10ml over 2min). Start 20:11/15/2016 Xiomara Hartman R.N. Medication Administered: IV NS (SALINE), Dose: IV Fluids, Rate: 1000 mL/hr, Dispensed: 1000 mL bag, Site: #1 left forearm. Medication Ordered: IV NS : initial bolus 1000 mL (1000 mL/hr), then 1000 mL/hr for X1 (NOW); Jeffrey.
== END 2016-11-15 21:02 | disposition home or self-care (01) ==
LOC: ED SRH 18:42
DX: R10.0 Acute abdomen (principal); Z87.891 Personal history of nicotine dependence; Z79.899 Other long term (current) drug therapy
CPT/HCPCS: 90100; 92235; 95059